=== PATIENT | male | born 1950 | race Asian ===

== ENCOUNTER 2017-11-29 07:57 | Day surgery (SDC) | payer MEDICARE, BC ==
[2017-11-29] MEDS ORDERED: GELATIN SIZE 100 SPONGE (08:26)
[2017-11-29] MEDS ORDERED: THROMBIN 5000 UNIT VIAL (08:27)
[2017-11-29] MEDS ORDERED: HEPARIN 1000 UNITS/ML 10 ML INJ (08:27)
[2017-11-29] MEDS ORDERED: LIDOCAINE 1% (MDV) 20 ML INJ (08:27)
[2017-11-29 08:39] LABS: ADD MAN DIFF? NO
[2017-11-29 08:43] LABS: BASOPHIL # 0.1 10^3/ul (0.0-0.1); EOSINOPHILS # 0.2 10^3/ul (0.0-0.5); EOSINOPHILS % 3.4 % (0.0-7.0); HEMATOCRIT 36.4 % (42.0-52.0); HEMOGLOBIN 12.2 g/dl (14.0-18.0); LYMPHOCYTES # 1.5 10^3/ul (0.8-2.9); LYMPHOCYTES % 29.7 % (15.0-51.0); MEAN CORPUSCULAR HEMOGLOBIN 31.4 pg (29.0-33.0); MEAN CORPUSCULAR HGB CONC 33.5 g/dl (32.0-37.0); MEAN CORPUSCULAR VOLUME 93.8 fl (82.0-101.0); MEAN PLATELET VOLUME 11.3 fl (7.4-10.4); MONOCYTE # 0.4 10^3/ul (0.3-0.9); MONOCYTES % 7.6 % (0.0-11.0); NEUTROPHIL # 2.9 10^3/ul (1.6-7.5); NEUTROPHILS % 58.1 % (39.0-77.0); PLATELET COUNT 138 10^3/UL (140-415); POSITIVE DIFF @See below; RED BLOOD COUNT 3.88 10^6/ul (4.70-6.10)
[2017-11-29] MEDS ORDERED: SOD CHLORIDE 0.9% 500 ML IV (09:00)
[2017-11-29] MEDS: THROMBIN 5000 UNIT VIAL TOP (09:00)
[2017-11-29] MEDS: HEPARIN 1000 UNITS/ML 10 ML INJ IRR (09:00)
[2017-11-29] MEDS: LIDOCAINE 1% (MPF) 30 ML INJ INJ (09:00)
[2017-11-29 09:04] LABS: INR 0.98; PROTIME 13.1 Sec (11.9-14.9)
[2017-11-29 09:10] LABS: ALANINE AMINOTRANSFERASE 145 IU/L (13-69); ALBUMIN 4.3 g/dl (3.3-4.9); ALBUMIN/GLOBULIN RATIO 0.97; ALKALINE PHOSPHATASE 74 IU/L (42-121); ANION GAP 23 (8-16); ASPARTATE AMINO TRANSFERASE 63 IU/L (15-46); BILIRUBIN,INDIRECT 0.5 mg/dl (0-1.1); BILIRUBIN,TOTAL 0.5 mg/dl (0.2-1.3); BLOOD UREA NITROGEN 87 mg/dl (7-20); CALCIUM 9.9 mg/dl (8.4-10.2); CARBON DIOXIDE 22 mmol/L (21-31); CHLORIDE 103 mmol/L (97-110); CREATININE 7.17 mg/dl (0.61-1.24); GLUCOSE 145 mg/dl (70-220); POTASSIUM 4.5 mmol/L (3.5-5.1); SODIUM 143 mmol/L (135-144); TOTAL PROTEIN 8.7 g/dl (6.1-8.1)
[2017-11-29] MEDS ORDERED: MIDAZOLAM 1 MG/ML 2 ML INJ (09:27)
[2017-11-29] MEDS ORDERED: FENTAnyl 50 MCG/ML VIAL ×2 (09:27→09:38)
[2017-11-29] MEDS ORDERED: ROPIVACAINE 0.5 % 30 ML VIAL (09:27)
[2017-11-29] MEDS ORDERED: FENTAnyl 50 MCG/ML VIAL IV ×3 (09:30)
[2017-11-29] MEDS ORDERED: EPHEDrine SULFATE 50 MG/5 ML SYG IV (09:30)
[2017-11-29] MEDS ORDERED: OXYCODONE/ACETAMINOPHEN (5/325) TAB PO ×2 (09:30)
[2017-11-29] MEDS ORDERED: hydrALAzine 20 MG INJ IV (09:30)
[2017-11-29] MEDS ORDERED: HYDROmorphONE 1 MG/5 ML IV SYRINGE IV ×3 (09:30)
[2017-11-29] MEDS ORDERED: ONDANSETRON 4 MG INJ IV (09:30)
[2017-11-29] MEDS ORDERED: METOCLOPRAMIDE 10 MG INJ IV (09:30)
[2017-11-29] MEDS ORDERED: MEPERIDINE 25 MG INJ IV (09:30)
[2017-11-29] MEDS ORDERED: LABETALOL HCL 20MG INJ IV (09:30)
[2017-11-29 10:06] LABS: PARTIAL THROMBOPLASTIN TIME 39.8 Sec (23.0-35.0)
[2017-11-29] MEDS ORDERED: PROPOFOL 20 ML (10:22)
[2017-11-29] MEDS ORDERED: ONDANSETRON 4 MG INJ (10:22)
[2017-11-29] MEDS ORDERED: DEXAMETHASONE 4 MG/ML 1 ML INJ (10:22)
[2017-11-29] MEDS ORDERED: CEFAZOLIN 1 GM INJ (10:22)
[2017-11-29] MEDS ORDERED: METOCLOPRAMIDE 10 MG INJ (10:22)
[2017-11-29] MEDS ORDERED: EPHEDrine SULFATE 50 MG/5 ML SYG (10:23)
== END 2017-11-29 12:25 | disposition home or self-care (01) ==
LOC: SDS 07:57
DX: I12.0 Hypertensive chronic kidney disease with stage 5 chronic kidney disease or end stage renal disease (principal); N18.6 End stage renal disease; E11.9 Type 2 diabetes mellitus without complications
CPT/HCPCS: 36821; 71045; 80053; 82962; 85025; 85610; 85730; 93005

== ENCOUNTER 2018-06-10 06:19 | Day surgery (SDC) | payer MEDICARE, BC ==
[2018-06-10 06:57] LABS: ADD MAN DIFF? NO
[2018-06-10] MEDS ORDERED: CEFAZOLIN 1 GM INJ (07:00)
[2018-06-10 07:02] LABS: BASOPHILS % 0.5 % (0.0-2.0); EOSINOPHILS # 0.1 10^3/ul (0.0-0.5); EOSINOPHILS % 1.6 % (0.0-7.0); HEMATOCRIT 33.4 % (42.0-52.0); HEMOGLOBIN 10.9 g/dl (14.0-18.0); LYMPHOCYTES # 1.6 10^3/ul (0.8-2.9); LYMPHOCYTES % 25.2 % (15.0-51.0); MEAN CORPUSCULAR HEMOGLOBIN 30.2 pg (29.0-33.0); MEAN CORPUSCULAR HGB CONC 32.6 g/dl (32.0-37.0); MEAN CORPUSCULAR VOLUME 92.5 fl (82.0-101.0); MEAN PLATELET VOLUME 10.2 fl (7.4-10.4); MONOCYTE # 0.5 10^3/ul (0.3-0.9); MONOCYTES % 8.4 % (0.0-11.0); NEUTROPHIL # 3.9 10^3/ul (1.6-7.5); PLATELET COUNT 140 10^3/UL (140-415); RED BLOOD COUNT 3.61 10^6/ul (4.70-6.10); RED CELL DISTRIBUTION WIDTH 13.9 % (11.5-14.5)
[2018-06-10 07:02] LABS: WHITE BLOOD COUNT 6.2 10^3/ul (4.8-10.8)
[2018-06-10 07:20] LABS: INR 0.93; PROTIME 12.6 Sec (11.9-14.9)
[2018-06-10 07:23] LABS: ALANINE AMINOTRANSFERASE 28 IU/L (13-69); ALBUMIN 4.5 g/dl (3.3-4.9); ALBUMIN/GLOBULIN RATIO 1.09; ALKALINE PHOSPHATASE 127 IU/L (42-121); ANION GAP 14 (5-13); ASPARTATE AMINO TRANSFERASE 24 IU/L (15-46); BILIRUBIN,INDIRECT 0.4 mg/dl (0-1.1); BILIRUBIN,TOTAL 0.4 mg/dl (0.2-1.3); CALCIUM 9.8 mg/dl (8.4-10.2); CARBON DIOXIDE 26 mmol/L (21-31); CHLORIDE 103 mmol/L (97-110); Estimated GFR 12 mL/min (>60); GLUCOSE 154 mg/dl (70-220); SODIUM 143 mmol/L (135-144); TOTAL PROTEIN 8.6 g/dl (6.1-8.1)
[2018-06-10 07:28] LABS: BLOOD UREA NITROGEN 34 mg/dl (7-20)
[2018-06-10 07:29] LABS: CREATININE 4.88 mg/dl (0.61-1.24)
[2018-06-10 07:42] LABS: PARTIAL THROMBOPLASTIN TIME 37.7 Sec (23.0-35.0)
[2018-06-10] MEDS ORDERED: THROMBIN (BOVINE) 5,000 UNIT VIAL TP (07:42)
[2018-06-10] MEDS ORDERED: GELATIN SIZE 100 SPONGE (07:42)
[2018-06-10] MEDS ORDERED: HEPARIN 1000 UNITS/ML 10 ML INJ (07:43)
[2018-06-10] MEDS ORDERED: LIDOCAINE 1% (MPF) 30 ML INJ (07:43)
[2018-06-10] MEDS: HEPARIN 1000 UNITS/ML 10 ML INJ IRR (07:45)
[2018-06-10] MEDS ORDERED: LABETALOL HCL 20MG INJ IV (08:00)
[2018-06-10] MEDS ORDERED: FENTAnyl 50 MCG/ML VIAL IV ×2 (08:00)
[2018-06-10] MEDS ORDERED: ONDANSETRON 4 MG INJ IV (08:00)
[2018-06-10] MEDS ORDERED: METOCLOPRAMIDE 10 MG INJ IV (08:00)
[2018-06-10] MEDS ORDERED: HYDROmorphONE 1 MG/5 ML IV SYRINGE IV ×2 (08:00)
[2018-06-10] MEDS ORDERED: DIPHENHYDRAMINE 50 MG INJ IV (08:00)
[2018-06-10] MEDS ORDERED: ALBUTEROL 0.083% (NEB) 2.5 MG/3 ML AMP HHN (08:00)
[2018-06-10] MEDS ORDERED: MIDAZOLAM 1 MG/ML 2 ML INJ (08:07)
[2018-06-10] MEDS ORDERED: ROPIVACAINE 0.5 % 30 ML VIAL (08:08)
[2018-06-10] MEDS: LIDOCAINE 1% (MPF) 30 ML INJ INJ (08:25)
[2018-06-10] MEDS ORDERED: LIDOCAINE 100 MG SYRINGE (08:34)
[2018-06-10] MEDS ORDERED: PROPOFOL 20 ML (08:34)
== END 2018-06-10 10:30 | disposition home or self-care (01) ==
LOC: SDS 06:19
DX: T82.898A Other specified complication of vascular prosthetic devices, implants and grafts, initial encounter (principal); Y84.1 Kidney dialysis as the cause of abnormal reaction of the patient, or of later complication, without mention of misadventure at the time of the procedure; I12.0 Hypertensive chronic kidney disease with stage 5 chronic kidney disease or end stage renal disease; N18.6 End stage renal disease; E11.9 Type 2 diabetes mellitus without complications
CPT/HCPCS: 36832; 71045; 80053; 82962; 85025; 85610; 85730; 93005